=== PATIENT | male | born 1980 | race American Indian/Alaskan Native ===

== ENCOUNTER 2017-01-30 14:54 | Emergency (ER) | payer SELFPAY ==
[2017-01-30 15:01] VITALS: BP 165/98
[2017-01-30 15:28] LABS: Urine Drugs of Abuse Note Disclamer
[2017-01-30 15:37] LABS: Bilirubin,Urine NEG (Negative)
[2017-01-30 15:37] LABS: Basophils % (Auto) 0.8 % (0.0-1.8); Eosinophils % (Auto) 0.4 % (0.0-4.3); Hematocrit 43.9 % (35.5-45.6); Hemoglobin 14.6 gm/dl (11.8-15.2); Mean Corpuscular HGB Conc 33 % (32-34); Mean Corpuscular Hemoglobin 28 pg (28-32); Mean Corpuscular Volume 86 fl (84-94); Platelet Count 184 K/mm3 (140-440); Red Blood Count 5.13 M/mm3 (3.65-5.03); Red Cell Distribution Width 13.3 % (13.2-15.2); White Blood Count 7.5 K/mm3 (4.5-11.0)
[2017-01-30 15:38] LABS: Blood,Urine NEG (Negative); Ketones,Urine NEG (Negative); Leukocyte Esterase,Urine NEG (Negative); Mucus,Urine 2+ /HPF; Nitrite,Urine NEG (Negative); Protein,Urine <15 mg/dL mg/dL (Negative); Urobilinogen,Urine < 2.0 mg/dL (<2.0)
[2017-01-30 15:59] LABS: Anion Gap 18 mmol/L; Blood Urea Nitrogen 12 mg/dL (9-20); Calcium 8.7 mg/dL (8.4-10.2); Carbon Dioxide 25 mmol/L (22-30); Chloride 102.5 mmol/L (98-107); Glucose 87 mg/dL (75-100); Potassium 3.6 mmol/L (3.6-5.0); Sodium 142 mmol/L (137-145)
--- NOTE | 2017-01-30 17:04 | Emergency Department Report ---
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 Patient states over the last several weeks has been stressed out secondary to having to support his elderly mom, and his brothers financially by himself. Patient states he has little financial help from his brothers. Patient states he has support the household on his own. Patient states today he felt increasingly stressed as he is not making money to support himself and thought about taking medications he has for urinary incontinence. Patient states he only had approximately 4 tablets and thought about taking them all. Patient states he called psych hotline, and encouraged him to seek help immediately. Patient states at this time his symptoms of SI have resolved. He states he prayed for an hour and he knew God did not want to hurt himself and he is currently motivated to earn more money to pay his bills. Patient currently denies: SI/HI/AH/VH. Patient denies psych history. MD Complaint: suicidal ideation, feels depressed -: Sudden History of same: No Quality: resolved prior to arrival Improves With: none Worsens With: none Context: significant life stressor (not enough money to pay the bills) Associated Symptoms: denies other symptoms. denies: confusion, shortness of breath, nausea, vomiting Treatments Prior to Arrival: placed on mental he If Self Harm: admits thoughts of (thoughts of self-harm has resolved, patient has some plans to harm himself.) - Related Data Allergies Allergy/AdvReac Type Severity Reaction Status Date / Time No Known Allergies Allergy Unverified 01/30/17 14:57 ED Review of Systems ROS: Stated complaint: SUICIDAL THOUGHTS Other details as noted in HPI Constitutional: denies: chills, fever Eyes: denies: eye pain, eye discharge, vision change ENT: denies: ear pain, throat pain Respiratory: denies: cough, shortness of breath, wheezing Cardiovascular: denies: chest pain, palpitations Endocrine: no symptoms reported Gastrointestinal: denies: abdominal pain, nausea, diarrhea Genitourinary: denies: urgency, dysuria Musculoskeletal: denies: back pain, joint swelling, arthralgia Skin: denies: rash, lesions Neurological: denies: headache, weakness, paresthesias Psychiatric: suicidal thoughts. 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 Absent: respiratory distress - Cardiovascular Cardiovascular Exam: Present: regular rate, normal rhythm. Absent: systolic murmur, diastolic murmur, rubs, gallop - GI/Abdominal GI/Abdominal exam: Present: soft, normal bowel sounds - Rectal Rectal exam: Present: deferred - Extremities Exam Extremities exam: Present: normal inspection - Back Exam Back exam: Present: normal inspection - Neurological Exam Neurological exam: Present: alert, oriented X3 - Psychiatric Psychiatric exam: Present: normal affect, normal mood. Absent: agitated, anxious, flat affect, manic, suicidal ideation (pt now denies SI ) - Skin Skin exam: Present: warm, dry, intact, normal color. Absent: rash ED Course Vital Signs 01/30/17 01/30/17 14:57 15:26 Temperature 98 F Pulse Rate 58 L Respiratory 20 18 Rate Blood Pressure 165/98 O2 Sat by Pulse 100 100 Oximetry ED Medical Decision Making - Lab Data Result diagrams: 01/30/17 15:29 01/30/17 15:29 - Medical Decision Making 37-year-old male with no past psychiatric history presenting to the emergency department complaining of resolved SI. At this time patient states he has no intentions of harming himself. Pacing nondistended he had a moment where he felt severely depressed however now is helpful and has a plan on how he is going to address his stressors. He has been evaluated by psychiatric social worker supervisor Ms Crump agrees patient does not meet 1013 criteria at this time. At this time patient does not appear to be a threat to himself or others. Critical Care Time: No Critical care attestation.: If time is entered above; I have spent that time in minutes in the direct care of this critically ill patient, excluding procedure time. ED Disposition Clinical Impression: Depression Disposition: DC-01 TO HOME OR SELFCARE Is pt being admited?: No Does the pt Need Aspirin: No Condition: Stable Instructions: Depression (ED) Referrals: PRIMARY CARE, [Primary Care Provider] - 3-5 Days TRENTON HERNANDEZ MD, PHD [Staff Physician] - 2-3 Days ROSI VILLALOBOS, DIRECTOR OF HOME CARE HOSPICE-[facility] [Advanced Practice Nurse] - 2-3 Days Forms: Work/School Release Form(ED)
== END 2017-01-30 18:57 | disposition home or self-care (01) ==
LOC: ED 14:54
DX: F32.9 Major depressive disorder, single episode, unspecified (principal)
CPT/HCPCS: 36415; 80048; 80307; 81001; 85025; 99283; G0480; 80320

== ENCOUNTER 2017-11-28 08:51 | Outpatient (CLI) | payer OTHER ==
--- NOTE | 2017-11-28 23:43 | XRay Report ---
FINAL REPORT PROCEDURE: XR SPINE CERVICAL 3V TECHNIQUE: Cervical spine radiographs, AP, lateral, swimmer's and open-mouth odontoid views. CPT 47700 HISTORY: Central cord syndrome. COMPARISON: No prior studies are available for comparison. FINDINGS: Prevertebral soft tissues: Prevertebral soft tissue prominence C4-6 Alignment: Slight C4-5 anterolisthesis. Vertebral body heights/Disk spaces: Moderate C4-5 and C5-6 disc space narrowing with osteophytes. Fracture(s): None . Facets: Normal . Bone mineralization: Normal . IMPRESSION: Degenerative changes of the cervical spine. Slight C4-5 anterolisthesis. Prevertebral soft tissue prominence C4-6. This could be positional, cannot exclude prevertebral soft tissue prominence from other etiology. Recommend MRI for further characterization if patient has no contraindication to MRI considering patient history of central cord syndrome.
== END 2017-11-28 08:52 | disposition home or self-care (01) ==
LOC: XRAY 08:51
PROVIDERS: ATTEND Internal Medicine
DX: M47.892 Other spondylosis, cervical region (principal); F32.9 Major depressive disorder, single episode, unspecified; S39.92XA Unspecified injury of lower back, initial encounter; S19.9XXA Unspecified injury of neck, initial encounter; S14.129A Central cord syndrome at unspecified level of cervical spinal cord, initial encounter; S09.90XA Unspecified injury of head, initial encounter; X58.XXXA Exposure to other specified factors, initial encounter; Y93.89 Activity, other specified; Y92.89 Other specified places as the place of occurrence of the external cause; Y99.8 Other external cause status
CPT/HCPCS: 72040

== ENCOUNTER 2022-04-10 15:43 | Emergency (ER) | payer SELFPAY ==
[2022-04-10 16:19] VITALS: BP 191/113
[2022-04-10] MEDS ORDERED: amLODIPine 5 MG TAB PO ONE (17:09)
--- NOTE | 2022-04-10 17:11 | Emergency Department Report ---
ED General Adult HPI - General Chief complaint: High BP Stated complaint: HIGH BLOOD PRESSURE Time Seen by Provider: 04/10/22 16:33 Source: patient, EMS ( EMS documentation not available at time of chart dictation ), RN notes reviewed, old records reviewed Mode of arrival: Stretcher Limitations: No Limitations - History of Present Illness Initial comments: The patient was evaluated in the emergency department for symptoms described in the history of present illness. He/she was evaluated in the context of the global COVID-19 pandemic, which necessitated consideration that the patient might be at risk for infection with the virus that causes COVID-19. Institutional protocols and algorithms that pertain to the evaluation of patients at risk for COVID-19 are in a state of rapid change based on information released by regulatory bodies including the CDC and federal and state organizations. These policies and algorithms were followed during the patient's care in the emergency department. Please note that these policies, procedures and recommendations changed on a rapid basis. This is a 42-year-old gentleman with a chronic history of hypertension, who presents to the department today with a complaint of chronic hypertension. He denies physical pain. He recently acquired insurance 8 months ago, but is having trouble obtaining outpatient primary care follow-up/appointment, because he does not know how to locate his private insurance documents. He previously followed at the [facility]. He currently denies headache, neck pain, chest pain, abdominal pain, shortness of breath, nausea, vomiting, diarrhea, loss of vision. He is mildly anxious about his high blood pressure. He reports that he is attempting to exercise and lose weight. He denies additional injuries and complaints. -: month(s) Consistency: constant Improves with: none Worsens with: none Associated Symptoms: denies other symptoms, other (Patient reports anxiety) - Related Data Previous Rx's Medication Instructions Recorded Last Taken Type Amlodipine Besylate [Norvasc] 5 mg PO QDAY #30 tab 04/10/22 Unknown Rx Allergies Allergy/AdvReac Type Severity Reaction Status Date / Time No Known Allergies Allergy Unverified 01/30/17 14:57 ED Review of Systems ROS: Stated complaint: HIGH BLOOD PRESSURE Other details as noted in HPI Comment: All other systems reviewed and negative Psychiatric: anxiety ED Past Medical Hx - Past Medical History Previous Medical History?: Yes Hx Hypertension: Yes Additional medical history: spinal cord injury, Concussion, 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 Absent: nystagmus - ENT ENT exam: Present: normal exam, normal orophraynx, mucous membranes moist, normal external ear exam - Neck Neck exam: Present: normal inspection, full ROM. Absent: tenderness, meningismus - Respiratory Respiratory exam: Present: normal lung sounds bilaterally. Absent: respiratory distress, wheezes, rales, rhonchi, stridor, decreased breath sounds - Cardiovascular Cardiovascular Exam: Present: regular rate, normal rhythm, normal heart sounds. Absent: bradycardia, tachycardia, irregular rhythm, systolic murmur, diastolic murmur, rubs, gallop - GI/Abdominal GI/Abdominal exam: Present: soft. Absent: distended, tenderness, guarding, rebound, rigid, pulsatile mass - Rectal Rectal exam: Present: deferred - Extremities Exam Extremities exam: Present: normal inspection, full ROM, normal capillary refill, other (2+ pulses noted in the bilateral upper and lower extremities. There is no palpable cord. negative Homans sign. Muscular compartments are soft. The pelvis is stable.). Absent: pedal edema, calf tenderness - Back Exam Back exam: Present: normal inspection, full ROM. Absent: tenderness, CVA tenderness (R), CVA tenderness (L), paraspinal tenderness, vertebral tenderness - Neurological Exam Neurological exam: Present: alert, oriented X3, normal gait, other (No facial droop. Tongue midline. Extraocular movements intact bilaterally. Facial sensation intact to light touch in V1, V2, V3 distribution bilaterally. 5 and a 5 strength in 4 extremities. Sensation intact to light touch in 4 extremities.). Absent: motor sensory deficit - Psychiatric Psychiatric exam: Present: anxious - Skin Skin exam: Present: warm, dry, intact, normal color. Absent: rash ED Course Vital Signs 04/10/22 16:16 Temperature 98.5 F Pulse Rate 75 Respiratory 18 Rate Blood Pressure 191/113 [Left] O2 Sat by Pulse 99 Oximetry ED Medical Decision Making - Lab Data Vital Signs 04/10/22 16:16 Temperature 98.5 F Pulse Rate 75 Respiratory 18 Rate Blood Pressure 191/113 [Left] O2 Sat by Pulse 99 Oximetry - Medical Decision Making Differential diagnosis, including but not limited to: Chronic hypertension Assessment and plan: 42-year-old gentleman with chronic hypertension, who is otherwise afebrile, with reassuring vital signs, clinically sober, with a GCS of 15. He is resting comfortably on his stretcher, watching social media on his cellular phone. He has no acute complaints, except as noted in the HPI, he does not appear to be acutely decompensated. His review of systems is pertinently negative. Please reference the [employer] clinical policy on asymptomatic hypertension. We discussed diet lifestyle modifications, exercise as tolerated, and we will initiate amlodipine. 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 On final reassessment, sitting down, in stretcher, resting comfortably, in no acute distress. Please reference the [employer] clinical policy on asymptomatic hypertension Critical care attestation.: If time is entered above; I have spent that time in minutes in the direct care of this critically ill patient, excluding procedure time. ED Disposition Clinical Impression: Elevated blood pressure reading Disposition: 01 HOME / SELF CARE / HOMELESS Is pt being admited?: No Does the pt Need Aspirin: No Condition: Good Instructions: Hypertension, Adult, [id number] Additional Instructions: Please take your blood pressure medication as directed. Recommend that patient exercise as tolerated, lose weight, and eat a lean healthy diet. Long-term complications of hypertension and elevated blood pressure include stroke, heart attack, disability, paralysis, and loss of quality of life. Follow-up with a primary care doctor within the next month. Please return to the emergency room right away with new pain, worsened pain, migration of pain, projectile vomiting, change in mental status, confusion, inability tolerate liquid feeds, new, worsened or different symptoms not present on the initial emergency room evaluation Referrals: JEREMY SUAREZ MD [Staff Physician] - 3-5 Days [facility] [Provider Group] - 3-5 Days Forms: Work/School Release Form(ED)
== END 2022-04-10 18:35 | disposition home or self-care (01) ==
LOC: ED 15:43
DX: I10 Essential (primary) hypertension (principal)
CPT/HCPCS: 99283